=== PATIENT | male | born 1975 | race Caucasian/White ===

== ENCOUNTER 2024-10-01 13:48 | Emergency (ER) | payer BC ==
[~2024-10-01] VITALS: Ht 177.8 cm; Wt 95.2 kg
[2024-10-01] MEDS ORDERED: LISINOPRIL20 MG PO (13:58)
[2024-10-01] MEDS ORDERED: DRIZALMA SPRINK20 MG PO (13:58)
[2024-10-01] MEDS ORDERED: NORVASC10 MG PO (13:58)
[2024-10-01 14:06] LABS: BASOPHILS 0.5 % (0.2-1.2); EOSINOPHILS 1.3 % (0.8-7.0); LYMPHOCYTES 35.1 % (21.8-53.1); MCH 30.4 PG (25.7-32.2); MCHC 34.6 g/dL (32.3-36.5); MCV 87.8 fL (79.0-92.2); MONOCYTES 9.4 % (5.3-12.2); NEUTROPHILS 53.2 % (34.0-67.9); RBC 4.84 M/uL (4.63-6.08)
[2024-10-01] MEDS ORDERED: SODIUM CHLORIDE 0.9% 1,000 ML IV PRN (14:15)
[2024-10-01] MEDS ORDERED: HYDROmorphone HCL 1 MG/ML SYR IV ONE (14:15)
[2024-10-01 14:22] LABS: ALT (SGPT) 29.0 U/L (14-59); AST (SGOT) 18.0 U/L (15-37); GLOMERULAR FILTRATION RATE,EST 99.0 mL/min (>60); PROTEIN, TOTAL 7.8 g/dL (6.4-8.2); UREA NITROGEN 13.0 mg/dL (7-18)
[2024-10-01 16:14] LABS: BLOOD/HGB, URINE SMALL (Negative); KETONE, URINE NEGATIVE (Negative); LEUK ESTERASE, URINE NEGATIVE (negative); NITRITE, URINE NEGATIVE (negative)
[2024-10-01 16:20] LABS: BACTERIA, URINE RARE /hpf (negative); CASTS, URINE NONE SEEN \\lpf; CRYSTALS, URINE NONE SEEN (0-1+); EPITHELIAL CELLS, URINE SQUAMOUS 1+ /lpf (0-1+); REFLEX CULTURE, URINE No (No)
[2024-10-01] MEDS ORDERED: IBU600 MG PO (17:26)
[2024-10-01] MEDS ORDERED: HYDROCODON-ACE1 EA10 PO (17:26)
[2024-10-01] MEDS ORDERED: ONDANSETRON ODT4 MG PO (17:26)
[2024-10-01] MEDS ORDERED: FLOMAX0.4 MG PO (17:26)
[2024-10-01] MEDS ORDERED: HYDROCODONE BIT/ACETAMINOPHEN 5/325 MG 1 TAB HOME.PACK PO ONE (17:30)
[2024-10-01] MEDS ORDERED: HYDROCODONE/ACETA 5/325 TAB PO ONE (17:30)
[2024-10-01] MEDS ORDERED: ONDANSETRON 4 MG HOME.PACK SL ONE (17:30)
[2024-10-01] MEDS ORDERED: TAMSULOSIN HCL 0.4 MG CAP PO ONE (17:45)
[2024-10-01 17:47] VITALS: BP 141/89
== END 2024-10-01 18:01 | disposition home or self-care (01) ==
LOC: ED 13:48
PROVIDERS: Emergency Medicine
DX: N13.2 Hydronephrosis with renal and ureteral calculous obstruction (principal); Z88.0 Allergy status to penicillin; Z88.5 Allergy status to narcotic agent; Z79.899 Other long term (current) drug therapy
CPT/HCPCS: 36415; 74177; 80053; 81001; 83690; 85025; 96374; 96375; 99284-25; A9270; J1171; J2405; J7030; Q9967